=== PATIENT | female | born 1990 | race Caucasian/White ===

== ENCOUNTER 2018-11-29 08:11 | Emergency (ER) | payer BC ==
[~2018-11-29] VITALS: Ht 162.6 cm; Wt 79.5 kg
[2018-11-29] MEDS ORDERED: diazepam inj 5 MG/ML inj. IV ONE ×2 (09:40→10:25)
[2018-11-29] MEDS ORDERED: diphenhydrAMINE 50 mg/ml inj IM ONE (09:40)
[2018-11-29] MEDS ORDERED: proCHLORperazine 10 MG/2 ml inj IM ONE (09:40)
[2018-11-29] MEDS ORDERED: ketorolac tromethamine 15mg/ml inj. IM ONE (09:40)
[2018-11-29 10:19] VITALS: BP 130/91
[2018-11-29] MEDS ORDERED: ONDA4TAB6 PO (10:34)
== END 2018-11-29 10:47 | disposition home or self-care (01) ==
LOC: ER 08:12
DX: F07.81 Postconcussional syndrome (principal); R11.10 Vomiting, unspecified; Z88.2 Allergy status to sulfonamides; W22.8XXA Striking against or struck by other objects, initial encounter; Y93.89 Activity, other specified; Y92.89 Other specified places as the place of occurrence of the external cause; Y99.9 Unspecified external cause status
CPT/HCPCS: 70450; 96374; 96375; 99284; J0780; J1200; J1885; J3360